=== PATIENT | female | born 1995 | race Caucasian/White ===

== ENCOUNTER 2016-10-15 04:02 | Emergency (ER) | payer BC ==
--- NOTE | ~2016-10-15 | CT2 ---
[facility] A Service of [facility] RADIOLOGY TEXT RESULTS PATIENT: AMERICO JOHNSNO LOCATION: [facility] : [birth year] UNIT #: [id number] AGE: [address]: Johnny Gloria SEX: F ORDER DR: [id number] [facility] [address] [place], [place] [address] [id number] E MR#: [id number] Acc #: [id number] NAME: AMERICO JOHNSON : 1995 SEX: F STUDY DATE/TIME: 10/15/2016 5:55 UNIT: [facility] ROOM: STUDY DESCRIPTION: CT Abd and Pelv W Cont Attending Physician: Johnny Gloria P.A.-C. Ordering Physician: Johnny Gloria P.A.-C. Primary Care Physician: Funmilayo Jo Aprn MEDICAL IMAGING REPORT This report is preliminary unless electronic signature is present EXAM CT abdomen and pelvis 10/15 INDICATIONS Nausea, vomiting and diarrhea with epigastric pain that started 11 o'clock last night. TECHNIQUE Axial images were obtained through the abdomen and pelvis following IV contrast administration. Multiplanar reformats were obtained. No comparison. This CT exam was performed with one or more of the following radiation dose reduction techniques: automatic exposure control, adjustment of mA and/or kV according to patient size, and iterative reconstruction. FINDINGS Abdomen: Lung bases are clear. Gallbladder is normal. There is no biliary obstruction. Solid abdominal organs are normal. No free fluid is seen. The unopacified GI tract is within normal limits. Pelvis: The appendix is normal. The remainder of the unopacified GI tract is normal as well. Urinary bladder is normal. Solid pelvic organs are normal. No free fluid. IMPRESSION 1. Negative CT abdomen and pelvis. 2. Normal unopacified GI tract including the appendix. 3. Normal nonobstructed kidneys. Dictated by... Toñito Alcazar Jr., M.D. [facility] A Service of [facility] RADIOLOGY TEXT RESULTS PATIENT: AMERICO JOHNSON LOCATION: [facility] : [birth year] UNIT #: [id number] AGE: [address]: Johnny Gloria PAC SEX: F ORDER DR: THIS IS AN ELECTRONICALLY VERIFIED REPORT Toñito Alcazar Jr., M.D. at 10/15/2016 10:02 AM Eleazar TD: 10/15/2016 07:41 JOB #: [id number] MEDICAL IMAGING REPORT Page 1 of 1 COPY
[~2016-10-15 04:02] MED LIST: PHENERGAN25 MG PO; ZITHROMAX PO; ZOFRAN PO
[2016-10-15 04:04] LABS: URINE SOURCE CLEAN CATCH
[2016-10-15 04:08] LABS: URINE APPEARANCE CLOUDY; URINE BILIRUBIN NEG (NEG); URINE BLOOD NEG (NEG); URINE COLOR YELLOW; URINE GLUCOSE 100 MG/DL (NEG); URINE KETONE 3+ (NEG); URINE LEUKOCYTE ESTERASE NEG (NEG); URINE NITRATE NEG (NEG); URINE PROTEIN NEG (NEG); URINE SPECIFIC GRAVITY 1.028 (1.003-1.035)
[2016-10-15 04:13] LABS: CULTURE INDICATED? NO
[2016-10-15 04:16] LABS: BASOPHIL% 0.3 % (0-2.5); EOSINOPHIL% 0.1 % (0.0-7.0); HEMATOCRIT 42.4 % (35.0-45.0); HEMOGLOBIN 13.8 gm/dL (12.0-16.0); LYMPHOCYTE# 0.4 X10e3 (1.0-3.5); MEAN CORPUSCULAR HEMOGLOBIN 27.4 PG (28-34); MEAN CORPUSCULAR HGB CONC 32.6 g/dL (30-36); MEAN PLATELET VOLUME 8.3 FL (6.5-11.5); MONOCYTE# 0.5 X10e3 (0-1.0); MONOCYTE% 3.3 % (3.0-12.0); NEUTROPHIL# 13.3 X10e3 (1.5-7.1); NEUTROPHIL% 93.3 % (40-75); PLATELET COUNT 237 X10e3 (140-420); RED BLOOD COUNT 5.05 X10e (3.90-5.30); RED CELL DISTRIBUTION WIDTH 13.4 % (11.0-15.5); WHITE BLOOD COUNT 14.2 X10e3 (4.0-10.5)
[2016-10-15 04:22] LABS: DIFF IND NO
[2016-10-15 04:37] LABS: ALBUMIN SERUM 3.7 g/dL (3.5-5.0); BILIRUBIN,TOTAL 0.6 mg/dL (0.2-2.0); BUN/CREATININE RATIO 22.5; CALCIUM SERUM 8.4 mg/dL (8.4-10.2); CREATININE SERUM 0.8 mg/dL (0.6-1.4); POTASSIUM 3.9 mmol/L (3.5-5.1); PROTEIN TOTAL SERUM 7.2 g/dL (6.0-8.3)
[2016-10-15 04:46] LABS: BILIRUBIN, DIRECT 0.1 mg/dL (0.0-0.2); BILIRUBIN,INDIRECT 0.5 mg/dL (0.0-0.9)
== END 2016-10-15 06:45 | disposition home or self-care (01) ==
LOC: CED 04:02
DX: R10.9 Unspecified abdominal pain (principal); R11.2 Nausea with vomiting, unspecified; R19.7 Diarrhea, unspecified; E11.9 Type 2 diabetes mellitus without complications; Z79.4 Long term (current) use of insulin; E07.9 Disorder of thyroid, unspecified; Z91.040 Latex allergy status
CPT/HCPCS: 36415; 74177; 80048; 80076; 81003; 82947; 83690; 84703; 85025; 96361; 96374; 96375; 99284; J2270; J2405; J2550; Q9967